=== PATIENT | male | born 1995 | race Caucasian/White ===

== ENCOUNTER 2019-07-24 18:27 | Emergency (ER) | payer BC ==
[~2019-07-24] VITALS: Ht 177.8 cm; Wt 70.3 kg
[2019-07-24 18:32] VITALS: Ht 177.8 cm; Wt 70.3 kg
[2019-07-24] MEDS ORDERED: LORAZEPAM 2 MG INJ IV STA (18:53)
[2019-07-24] MEDS ORDERED: SOD CHLORIDE 0.9% 1,000 ML IV STA (18:53)
[2019-07-24 19:59] VITALS: BP 101/47; PULSE 68; RESP 14
== END 2019-07-24 20:08 | disposition home or self-care (01) ==
LOC: E/R 18:27
DX: R56.9 Unspecified convulsions (principal); R40.2142 Coma scale, eyes open, spontaneous, at arrival to emergency department; R40.2362 Coma scale, best motor response, obeys commands, at arrival to emergency department; R40.2252 Coma scale, best verbal response, oriented, at arrival to emergency department; F19.10 Other psychoactive substance abuse, uncomplicated; E86.0 Dehydration; F17.210 Nicotine dependence, cigarettes, uncomplicated
CPT/HCPCS: 36415; 80048; 85025; 93005; 96374; 99284; J2060; J7030